=== PATIENT | male | born 1985 | race Caucasian/White ===

== ENCOUNTER 2017-12-20 06:21 | Inpatient (IN) | payer BC ==
[2017-12-20] MEDS ORDERED: Sodium Chloride 0.9% 1,000 ML IV ONE (07:01)
[2017-12-20] MEDS ORDERED: HYDROmorphone 1 mg/mL 1mL Syr IVP STA ×2 (07:02→08:35)
--- NOTE | 2017-12-20 07:10 | ED Physician Chart ---
ED Chief Complaint/HPI - Patient Information Date Seen:: 12/20/17 Time Seen:: 06:45 Chief Complaint:: abdominal pain History of Present Illness:: Yesterday afternoon patient developed vomiting and diarrhea. He vomited about 10 times the last 3 times since he's arrived in the emergency department. He has had 5-6 times diarrhea last time about 15 minutes ago. Right-sided abdominal pain started last night. Allergies:: Allergies Allergy/AdvReac Type Severity Reaction Status Date / Time No Known Allergies Allergy Verified 12/20/17 06:38 Vitals:: Vital Signs - 8 hr 12/20/17 06:38 Temp 98.5 F HR 73 RR 18 BP 138/81 O2 Sat % 100 Historian:: Patient Review:: Nurse's Note Reviewed <Tre Veliz - Last Filed: 12/20/17 07:13> - Patient Information Allergies:: Allergies Allergy/AdvReac Type Severity Reaction Status Date / Time No Known Allergies Allergy Verified 12/20/17 06:38 Vitals:: Vital Signs - 8 hr 12/20/17 12/20/17 06:38 08:03 Temp 98.5 F HR 73 75 RR 18 16 BP 138/81 144/83 O2 Sat % 100 100 <Ady Mccarty - Last Filed: 12/20/17 08:43> ED Review of Systems - Review of Systems General/Constitutional: No fever, No chills, No weight loss, No weakness, No diaphoresis, No edema, No loss of appetite Skin: No skin lesions, No rash, No bruising Head: No headache, No light-headedness Eyes: No loss of vision, No pain, No diplopia ENT: No earache, No nasal drainage, No sore throat, No tinnitus Neck: No neck pain, No swelling, No thyromegaly, No stiffness, No mass noted Cardio Vascular: No chest pain, No palpitations, No PND, No orthopnea, No edema Pulmonary: No SOB, No cough, No sputum, No wheezing GI: Nausea, Vomiting, Diarrhea, No pain, No melena, No hematochezia, No constipation, No hematemesis G/U: No dysuria, No frequency, No hematuria Musculoskeletal: No bone or joint pain, No back pain, No muscle pain Endocrine: No polyuria, No polydipsia Psychiatric: No prior psych history, No depression, No anxiety, No suicidal ideation Hematopoietic: No bruising, No lymphadenopathy Allergic/Immuno: No urticaria, No angioedema Neurological: No syncope, No focal symptoms, No weakness, No paresthesia, No headache, No seizure, No dizziness, No confusion, No vertigo <Tre Veliz - Last Filed: 12/20/17 07:13> ED Past Medical History - Past Medical History Past Medical History: DM, Seizures, Thyroid disorder, Other (hypothyroidism) Family History: Diabetes Melitus, Other (cirrhosis) Social History: Smoker, No Alcohol, Other (smokes 4-5 cigarettes a day) Surgical History: Appendectomy, other (patient had a laparotomy 3 years ago for possibly a ruptured appendix (patient isn't absolutely sure)) Psychiatricy History: None Medication: Reviewed <Tre Veliz - Last Filed: 12/20/17 07:13> Family Medical History - Family Member Mother Other Medical History: CIRRHOSIS Brother Hx Family Diabetes: Yes <Tre Veliz - Last Filed: 12/20/17 07:13> ED Physical Exam - Physical Examination General/Constitutional: Awake Head: Atraumatic Eyes: Lids, conjuctiva normal, PERRL, EOMI Skin: Nl inspection, No rash, No skin lesions, No ecchymosis, Well hydrated, No lymphadenopathy ENMT: External ears, nose nl, Nasal exam nl, Lips, teeth, gums nl Neck: Nontender, Full ROM w/o pain, No JVD, No nuchal rigidity, No bruit, No mass, No stridor Respiratory: Nl effort/Exclusion, Clear to Auscultation, No Wheeze/Rhonchi/Rales Cardio Vascular: RRR, No murmur, gallop, rubs, NL S1 S2 Other GI comments:: Abdomen 2 out of 4 distended; hyperactive bowel sounds; diffuse tenderness with rebound tenderness; right sided tenderness is more than left-sided tenderness. About 25 cm long midline abdominal incision scar present. : No CVA tenderness Extremities: No tenderness or effusion, Full ROM, normal strength in all extremities, No edema, Normal digits & nails Neuro/Psych: Alert/oriented, DTR's symmetric, Normal sensory exam, Normal motor strength, Judgement/insight normal, Mood normal, Normal gait, No focal deficits Misc: Normal back, No paraspinal tenderness <Tre Veliz - Last Filed: 12/20/17 07:13> ED Labs/Radiology/EKG Results - Lab Results Results: Laboratory Tests 12/20/17 12/20/17 12/20/17 07:10 07:10 07:10 WBC 8.4 RBC 3.95 L Hgb 11.7 L Hct 34.4 L MCV 87.2 MCH 29.6 MCHC Differential 34.0 RDW 13.7 Plt Count 230 MPV 7.4 Neutrophils % 79.7 Lymphocytes % 12.1 L Monocytes % 7.1 Eosinophils % 0.2 Basophils % 0.9 Sodium 134 L Potassium 3.6 Chloride 102 Carbon Dioxide 23.0 Anion Gap 12.6 BUN 13 Creatinine 0.8 Est GFR ( Amer) > 60.0 Est GFR (Non-Af Amer) > 60.0 BUN/Creatinine Ratio 16.3 Glucose 368 H Calcium 8.8 Magnesium 2.1 Lipase < 3 L Comments:: Glucose: 368 - Radiology Results Comments:: Cholelithiasis; Constipation <Ady Mccarty - Last Filed: 12/20/17 08:43> ED Assessment - Assessment General Assessment: Patient endorsed to Dr. Mccarty at 0715. <Tre Veliz - Last Filed: 12/20/17 07:13> ED Septic Shock - <6hrs of presentation: Vital Signs: Vital Signs - 8 hr 12/20/17 06:38 Temp 98.5 F HR 73 RR 18 BP 138/81 O2 Sat % 100 <Tre Veliz - Last Filed: 12/20/17 07:13> - . Is Septic Shock (SBP<90, OR Lactate>4 mmol\L) present?: No - <6hrs of presentation: Vital Signs: Vital Signs - 8 hr 12/20/17 12/20/17 06:38 08:03 Temp 98.5 F HR 73 75 RR 18 16 BP 138/81 144/83 O2 Sat % 100 100 <Ady Mccarty - Last Filed: 12/20/17 08:43> ED Reassessment (Disposition) - Reassessment Reassessment Condition:: Improved - Diagnosis Diagnosis:: Dx: Cholithiasis; Constipation; Abdominal Pain; N/V/D/C; SBO; Uncontrolled DM; Hyponatremia; Anemia; Dehydration; AGE; Gastroenteritis; Diabetic Gastroparesis - Aftercare/Follow up Instructions Aftercare/Follow-Up Instructions:: Counseled pt regarding lab results/diagnosis & need follow up, Counseled pt & family regarding lab results/diagnosis & need follow up - Patient Disposition Discharge/Transfer:: Acute Care w/in this hosp Accepting Physician:: Dr. Israel Time Called:: 829 Time Responded:: 08:30 Admitted to:: Med/Surg Spoke to:: Dr. Israel Admitting Medical Physician:: Dr. Israel Condition at Disposition:: Stable, Improved <Ady Mccarty - Last Filed: 12/20/17 08:43>
[2017-12-20 07:18] LABS: % BASOPHILS 0.9 % (0.0-2.0); % EOSINOPHILS 0.2 % (0.0-5.0); % LYMPHOCYTES 12.1 % (20.0-50.0); % MONOCYTES 7.1 % (2.0-10.0); % NEUTROPHILS 79.7 % (40.0-80.0); BASOPHILE ABSOLUTE 0.1 Th/cumm (0-0.2); HEMATOCRIT 34.4 % (41.0-60); HEMOGLOBIN 11.7 gm/dL (12-16); MEAN CELL VOLUME 87.2 fl (80-99); MEAN CORPUSCULAR HEMOGLOBIN 29.6 pg (26.0-30.0); MEAN PLATELET VOLUME 7.4 fl; MONOCYTE ABSOLUTE 0.6 Th/cmm (0.3-1.0); NEUTROPHILE ABSOLUTE 6.7 Th/cmm (1.8-8.0); PLATELET COUNT 230 Th/cmm (150-400); RED BLOOD COUNT 3.95 Mil/cmm (4.30-5.70); RED CELL DISTRIBUTION WIDTH 13.7 % (11.5-20.0); WHITE BLOOD COUNT 8.4 Th/cmm (4.8-10.8)
[2017-12-20] MEDS ORDERED: HYDROmorphone 1 mg/mL 1mL Syr ONE ×2 (07:22→09:03)
[2017-12-20 07:28] LABS: ANION GAP 12.6 (7.0-16.0); BUN - UREA NITROGEN 13 mg/dL (7-25); CALCIUM SERUM 8.8 mg/dL (8.6-10.3); CHLORIDE 102 mEq/L (98-107); CREATININE - SERUM 0.8 mg/dL (0.7-1.3); GFR AFRICAN-AMERICAN > 60.0 ml/min (>90); GFR NON AFRICAN-AMERICAN > 60.0 ml/min; GLUCOSE 368 mg/dL (70-105); MAGNESIUM 2.1 mg/dL (1.9-2.7); POTASSIUM SERUM 3.6 mEq/L (3.5-5.1); SODIUM SERUM 134 mEq/L (136-145)
--- NOTE | 2017-12-20 08:08 | Diagnostic Imaging Report ---
CT scan abdomen and pelvis without intravenous contrast HISTORY: Pain Total DLP equals 300 CTDI equals 6.3 Axial sections were obtained from the xiphoid process down to the pubic symphysis. The liver exhibits a normal size and contour. No focal lesions. Faint intraluminal hyperdensities seen in the gallbladder consistent with changes of cholelithiasis. The spleen appears normal. No focal abnormality seen in the kidneys. No hydronephrosis. The exam of the pelvis demonstrates preservation of normal fat planes. No abnormal soft tissue masses or abnormal fluid collections. There is mildly distended stool-filled large bowel. Changes may be associated with constipation. Hypodensity seen in the region of the appendix. Small appendicoliths cannot be excluded. Question surgical changes. IMPRESSION: 1. Stool filled somewhat distended large bowel suggesting constipation 2. Findings consistent with cholelithiasis 3. Hyperdensity in the region of the appendix that may be associated with small appendicoliths. Questionable surgical changes in the area. Findings should be correlated clinically and with patient's symptoms and surgical history.
[2017-12-20] MEDS ORDERED: INSULIN HUMAN REGULAR 100 UNITS/ML UNIT SUBQ ONE (08:31)
[2017-12-20] MEDS ORDERED: Metoclopramide 5 mg/mL 2mL Vial IVP STA (08:35)
[2017-12-20] MEDS ORDERED: Metoclopramide 5 mg/mL 2mL Vial ONE (09:04)
[2017-12-20] MEDS ORDERED: INSULIN HUMAN REGULAR 100 UNITS/ML UNIT ONE (09:05)
[2017-12-20] MEDS ORDERED: Morphine Sulfate 4 mg/mL 1mL Syr IV PRN (10:23)
[2017-12-20] MEDS ORDERED: 0.45% NS w/20 mEq KCl 1,000 ML IV SCH (10:23)
[2017-12-20 10:59] LABS: URINE MICROSCOPIC INDICATED? YES; URINE SOURCE MIDSTREAM
[2017-12-20 11:02] LABS: URINE BILIRUBIN NEGATIVE (NEGATIVE); URINE BLOOD NEGATIVE (NEGATIVE); URINE GLUCOSE (UA) >=1000 mg/dL (NEGATIVE); URINE KETONE 15 mg/dL (NEGATIVE); URINE LEUKOCYTE ESTERASE NEGATIVE (NEGATIVE); URINE NITRATE NEGATIVE (NEGATIVE); URINE PROTEIN NEGATIVE (NEGATIVE); URINE UROBILINOGEN 0.2 E.U./dL (0.2 - 1.0)
[2017-12-20 11:03] LABS: URINE CLARITY CLEAR (CLEAR); URINE COLOR YELLOW
[2017-12-20 11:06] LABS: URINE EPITHELIAL CELLS OCCASIONAL /lpf (FEW); URINE RBC 0-2 /hpf (0-5)
[2017-12-20 11:07] LABS: URINE BACTERIA OCCASIONAL /hpf (NONE SEEN)
[2017-12-20 11:08] LABS: URINE YEAST FEW /hpf (NONE SEEN)
--- NOTE | 2017-12-20 11:29 | General Progress Note ---
Subjective - Review of Systems Service Date: 12/20/17 Events since last encounter: CHART REVIEWED HIDA ORDERED Objective - Results Result Diagrams: 12/20/17 07:10 12/20/17 07:10 Recent Labs: Laboratory Last Values WBC 8.4 Th/cmm (4.8-10.8) 12/20/17 07:10 RBC 3.95 Mil/cmm (4.30-5.70) L 12/20/17 07:10 Hgb 11.7 gm/dL (12-16) L 12/20/17 07:10 Hct 34.4 % (41.0-60) L 12/20/17 07:10 MCV 87.2 fl (80-99) 12/20/17 07:10 MCH 29.6 pg (26.0-30.0) 12/20/17 07:10 MCHC Differential 34.0 pg (28.0-36.0) 12/20/17 07:10 RDW 13.7 % (11.5-20.0) 12/20/17 07:10 Plt Count 230 Th/cmm (150-400) 12/20/17 07:10 MPV 7.4 fl 12/20/17 07:10 Neutrophils % 79.7 % (40.0-80.0) 12/20/17 07:10 Lymphocytes % 12.1 % (20.0-50.0) L 12/20/17 07:10 Monocytes % 7.1 % (2.0-10.0) 12/20/17 07:10 Eosinophils % 0.2 % (0.0-5.0) 12/20/17 07:10 Basophils % 0.9 % (0.0-2.0) 12/20/17 07:10 Sodium 134 mEq/L (136-145) L 12/20/17 07:10 Potassium 3.6 mEq/L (3.5-5.1) 12/20/17 07:10 Chloride 102 mEq/L (98-107) 12/20/17 07:10 Carbon Dioxide 23.0 mEq/L (21.0-31.0) 12/20/17 07:10 Anion Gap 12.6 (7.0-16.0) 12/20/17 07:10 BUN 13 mg/dL (7-25) 12/20/17 07:10 Creatinine 0.8 mg/dL (0.7-1.3) 12/20/17 07:10 Est GFR ( Amer) > 60.0 ml/min (>90) 12/20/17 07:10 Est GFR (Non-Af Amer) > 60.0 ml/min 12/20/17 07:10 BUN/Creatinine Ratio 16.3 12/20/17 07:10 Glucose 368 mg/dL (70-105) H 12/20/17 07:10 POC Glucose 262 MG/DL (70 - 105) H 12/20/17 11:00 Calcium 8.8 mg/dL (8.6-10.3) 12/20/17 07:10 Magnesium 2.1 mg/dL (1.9-2.7) 12/20/17 07:10 Lipase < 3 U/L (11-82) L 12/20/17 07:10 Urine Source MIDSTREAM 12/20/17 10:25 Urine Color YELLOW 12/20/17 10:25 Urine Clarity CLEAR (CLEAR) 12/20/17 10:25 Urine pH 6.0 (4.6 - 8.0) 12/20/17 10:25 Ur Specific [place] 1.020 (1.005-1.030) 12/20/17 10:25 Urine Protein NEGATIVE mg/dL (NEGATIVE) 12/20/17 10:25 Urine Glucose (UA) >=1000 mg/dL (NEGATIVE) H 12/20/17 10:25 Urine Ketones 15 mg/dL (NEGATIVE) H 12/20/17 10:25 Urine Blood NEGATIVE (NEGATIVE) 12/20/17 10:25 Urine Nitrate NEGATIVE (NEGATIVE) 12/20/17 10:25 Urine Bilirubin NEGATIVE (NEGATIVE) 12/20/17 10:25 Urine Urobilinogen 0.2 E.U./dL (0.2 - 1.0) 12/20/17 10:25 Ur Leukocyte Esterase NEGATIVE (NEGATIVE) 12/20/17 10:25 Urine RBC 0-2 /hpf (0-5) H 12/20/17 10:25 Urine WBC 2-5 /hpf (0-5) 12/20/17 10:25 Ur Epithelial Cells OCCASIONAL /lpf (FEW) 12/20/17 10:25 Urine Bacteria OCCASIONAL /hpf (NONE SEEN) 12/20/17 10:25 Urine Yeast FEW /hpf (NONE SEEN) H 12/20/17 10:25 - Physical Exam Vitals and I&O: Vital Signs Temp 97.8 F 12/20/17 10:11 Pulse 68 12/20/17 09:58 Resp 16 12/20/17 09:58 BP 125/69 12/20/17 09:58 Pulse Ox 100 12/20/17 09:58 Active Medications: Current Medications Diphenhydramine HCl (Benadryl 50 Mg/Ml) 25 mg IVP NOW STA Stop: 12/20/17 07:46 Last Admin: 12/20/17 07:45 Dose: 25 mg Hydromorphone HCl (Dilaudid) 1 mg IVP NOW STA Stop: 12/20/17 07:03 Last Admin: 12/20/17 07:30 Dose: 1 mg Hydromorphone HCl (Dilaudid) 1 mg IVP NOW STA Stop: 12/20/17 08:36 Last Admin: 12/20/17 09:15 Dose: 1 mg Sodium Chloride (Nacl 0.9%) 1,000 mls @ 0 mls/hr IV .Q0M ONE PRN Reason: Wide Open Stop: 12/20/17 07:02 Last Admin: 12/20/17 07:25 Dose: 1,000 mls/hr Levofloxacin (Levaquin Pb) 750 mg in 150 mls @ 100 mls/hr IV Q24HR CAN Stop: 02/18/18 11:29 Metronidazole (Flagyl) 500 mg in 100 mls @ 100 mls/hr IV Q8HR CAN Stop: 02/18/18 12:59 Potassium Chloride/Sodium Chloride (0.45% Ns W/20 Meq Kcl) 1,000 mls @ 125 mls/ hr IV .Q8H CAN Stop: 02/18/18 10:22 Insulin Aspart (Novolog Insulin Sliding Scale) 0 units SUBQ ACHS CAN PRN Reason: Protocol Stop: 02/18/18 11:29 Insulin Human Regular (Novolin R) 8 units SUBQ X1 ONE Stop: 12/20/17 08:32 Last Admin: 12/20/17 09:15 Dose: 8 units Metoclopramide HCl (Reglan) 5 mg IVP NOW STA Stop: 12/20/17 08:36 Last Admin: 12/20/17 09:15 Dose: 5 mg Morphine Sulfate (Morphine) 4 mg IV Q4H PRN PRN Reason: Abdominal Pain Stop: 02/18/18 10:22 Ondansetron HCl (Zofran) 4 mg IV NOW STA Stop: 12/20/17 07:02 Last Admin: 12/20/17 07:30 Dose: 4 mg Ondansetron HCl (Zofran) 4 mg IV Q4H PRN PRN Reason: Nausea / Vomiting Stop: 02/18/18 10:22
[2017-12-20] MEDS ORDERED: INSULIN ASPART SLIDING SCALE 100 UNITS/ML UNIT SUBQ SCH (11:30)
[2017-12-20] MEDS ORDERED: Levofloxacin 750mg/150mL 750 MG/150 ML BAG IV SCH (11:30)
[2017-12-20] MEDS ORDERED: metroNIDAZOLE 500mg/NS 100mL 500 MG/100 ML BAG IV SCH (13:00)
[2017-12-20 22:17] LABS: A1C % 9.4 % (4.0-6.0)
== END 2017-12-20 13:25 | disposition left against medical advice (07) | DRG 445 ==
LOC: ER 06:21 → MSI 08:53
PROVIDERS: ADMIT Family Medicine; ATTEND Family Medicine
DX: K80.20 Calculus of gallbladder without cholecystitis without obstruction (principal); K56.609 Unspecified intestinal obstruction, unspecified as to partial versus complete obstruction; E87.1 Hypo-osmolality and hyponatremia; E11.43 Type 2 diabetes mellitus with diabetic autonomic (poly)neuropathy; R56.9 Unspecified convulsions; E03.9 Hypothyroidism, unspecified; F17.210 Nicotine dependence, cigarettes, uncomplicated; K31.84 Gastroparesis; K59.00 Constipation, unspecified; D64.9 Anemia, unspecified; E86.0 Dehydration; K52.9 Noninfective gastroenteritis and colitis, unspecified; Z53.21 Procedure and treatment not carried out due to patient leaving prior to being seen by health care provider; Z90.49 Acquired absence of other specified parts of digestive tract
CPT/HCPCS: 36415-UA; 80048-TC; 81001-TC; 82948-90; 83036-90; 83690-TC; 83735-TC; 85025-TC; 90799; 96374; 96375; J1170; J1200; J1815; J1956; J2405; J2765; J3480; J7030